=== PATIENT | female | born 1990 | race Caucasian/White ===

== ENCOUNTER 2017-01-08 05:03 | Day surgery (SDC) | payer OTHER ==
[2017-01-04 13:59] VITALS: BMI 18.0
--- NOTE | 2017-01-04 14:28 | PAT Medication Instructions ---
Service Date Jan 04, 2017. Current Home Medication List Albuterol Hfa (Ventolin Hfa), 2 PUFFS INH Q4H PRN for Cough Diclofenac (Voltaren), 50 MG PO PRN Ethinyl Estrad/Norgestimate (Sprintec 28), 1 TAB PO DAILY Ibuprofen (Advil), 200-600 MG PO Q4H PRN for Headache Methocarbamol (Robaxin), 500 MG PO PRN Prochlorperazine Maleate (Compazine), 10 MG PO Q6H PRN for PRN Medication Instructions For Your Scheduled Surgery - Hold the following medications the morning of surgery: Diclofenac (Voltaren), 50 MG PO PRN Ibuprofen (Advil), 200-600 MG PO Q4H PRN for Headache (otherwise okay to continue per surgeon) Methocarbamol (Robaxin), 500 MG PO PRN - Take the following medications the morning of surgery with a sip of water OTHERWISE NOTHING TO EAT OR DRINK AFTER MIDNIGHT: Ethinyl Estrad/Norgestimate (Sprintec 28), 1 TAB PO DAILY Prochlorperazine Maleate (Compazine), 10 MG PO Q6H PRN for PRN Albuterol Hfa (Ventolin Hfa), 2 PUFFS INH Q4H PRN for Cough (USE IF NEEDED; BRING TO HOSPITAL) - Take the following medications as scheduled the night before surgery: Methocarbamol (Robaxin), 500 MG PO PRN Prochlorperazine Maleate (Compazine), 10 MG PO Q6H PRN for PRN Albuterol Hfa (Ventolin Hfa), 2 PUFFS INH Q4H PRN for Cough If you have any questions please call us at [phone] or [phone] or [phone]
[2017-01-04 14:48] LABS: HEMATOCRIT 36.3 % (37-47); MEAN CELL VOLUME 88.8 fL (80-100); MEAN CORPUSCULAR HEMOGLOBIN 30.1 pg (25-34); MEAN CORPUSCULAR HGB CONC 33.9 g/dl (32-36); MEAN PLATELET VOLUME 9.1 fL (7.4-10.4); PLATELET COUNT 347 K/uL (130-400); RED BLOOD COUNT 4.09 M/uL (4.2-5.4)
[2017-01-04 15:08] LABS: BASO % 0.6 %; BASO ABS # 0.05 K/uL (0-0.2); COMPLETE YES; EOS % 2.5 %; IG% 0.1 %; LYMPH % 54.9 %; LYMPH ABS # 4.89 K/uL (1.2-3.4); MONO % 8.9 %
[2017-01-04 15:12] LABS: BUN/CREATININE RATIO 12.1 (10-20); CALCIUM 8.9 mg/dl (8.5-10.1); CREATININE 0.66 mg/dl (0.60-1.20); POTASSIUM 3.9 mmol/L (3.5-5.1)
[2017-01-04 15:15] LABS: PREG INTERNAL NEGATIVE QC NEG CLEAR BACKGROUND; PREG INTERNAL POSITIVE QC POS CONTROL LINE
[~2017-01-08] VITALS: Ht 157.5 cm; Wt 44.6 kg
[~2017-01-08 05:03] MED LIST: CEFAZOLIN 2000 MG/60 ML D5W IV SCH; DICL50TA3 PO; IBUP-1050 PO; LACTATED RINGER'S 1000ML 1,000 ML IV SCH; METH500T37 PO; PROC1TAB5 PO; SPR28 PO; VNTHFA/IN INH
[2017-01-08 05:34] VITALS: BP 105/64; PULSE 72; TEMP 36.5; O2SAT 98; Ht 157.5 cm; Wt 44.6 kg
[2017-01-08] MEDS ORDERED: CEFAZOLIN IV 2,000 MG/60 ML D5W IV ONE (05:53)
[2017-01-08] MEDS ORDERED: CEFAZOLIN 2000 MG/60 ML D5W IV SCH (06:00)
[2017-01-08] MEDS ORDERED: LACTATED RINGER'S 1000ML 1,000 ML IV SCH ×2 (06:00)
[2017-01-08] MEDS ORDERED: ACETAMINOPHEN 1000 MG/100 ML IV IV ONE (06:22)
[2017-01-08] MEDS ORDERED: ONDANSETRON INJ 2 MG/ML 2 ML VIAL ONE (06:23)
[2017-01-08] MEDS ORDERED: GLYCOPYRROLATE INJ 0.2 MG/ML VIAL ONE (06:23)
[2017-01-08] MEDS ORDERED: SUCCINYLCHOLINE CHLORIDE 20 MG/ML 10 ML VIAL IV ONE (06:23)
[2017-01-08] MEDS ORDERED: FENTANYL CITRATE INJ 50 MCG/1 ML 2 ML VIAL ONE (06:23)
[2017-01-08] MEDS ORDERED: LIDOCAINE HCL 2% 2 ML VIAL (20MG/ML) ONE (06:23)
[2017-01-08] MEDS ORDERED: DEXAMETHASONE SOD INJ 4 MG/ML VIAL ONE (06:23)
[2017-01-08] MEDS ORDERED: EpHEDrine SULFATE INJ 50 MG/ML AMP ONE (06:23)
[2017-01-08] MEDS ORDERED: ROCURONIUM BROMIDE 10 MG/ML 5 ML VIAL ONE (06:23)
[2017-01-08] MEDS ORDERED: PROPOFOL IV EMULSION 10 MG/ML 20 ML VIAL IV ONE ×2 (06:23→07:48)
[2017-01-08] MEDS ORDERED: NEOSTIGMINE METHYLSULFATE 5 MG/5 ML SYR ONE (06:23)
[2017-01-08] MEDS ORDERED: PHENYLEPHRINE HCL INJ 10 MG/ML VIAL ONE (06:23)
[2017-01-08] MEDS ORDERED: MIDAZOLAM HCL 1 MG/ML 2ML VIAL ONE (06:23)
[2017-01-08 06:28] LABS: BASO % 0.5 %; BASO ABS # 0.04 K/uL (0-0.2); EOS % 3.3 %; HEMATOCRIT 31.7 % (37-47); IG% 0.1 %; LYMPH % 49.7 %; LYMPH ABS # 4.11 K/uL (1.2-3.4); MEAN CELL VOLUME 88.8 fL (80-100); MEAN PLATELET VOLUME 8.8 fL (7.4-10.4); MONO % 9.6 %; NEUT % 36.8 %; PLATELET COUNT 287 K/uL (130-400); RED BLOOD COUNT 3.57 M/uL (4.2-5.4); WHITE BLOOD COUNT 8.27 K/uL (4.8-10.8)
[2017-01-08 06:35] LABS: COMPLETE YES; MEAN CORPUSCULAR HGB CONC 33.8 g/dl (32-36)
--- NOTE | 2017-01-08 06:40 | History & Physical Bridge Note ---
H&P Re-Evaluation Bridge Note: I have examined the patient, reviewed the History & Physical and in the interval since the performance of the History & Physical I have noted the following changes of clinical significance: No changes noted
[2017-01-08] MEDS ORDERED: SCOPOLAMINE 1.5 MG TDSY TD ONE (06:46)
[2017-01-08] MEDS ORDERED: BUPIVACAINE 0.5 % 5 MG/1 ML MPF 30ML VIAL ONE (06:57)
[2017-01-08] MEDS ORDERED: NURSING VERBAL MED ORDER ONE (07:00)
[2017-01-08] MEDS ORDERED: HYDROmorphone INJ 1 MG/ML SYR IV PRN (07:45)
[2017-01-08] MEDS ORDERED: ATROPINE SULFATE 0.1 MG/ML 5ML SYR IV PRN (07:45)
[2017-01-08] MEDS ORDERED: EpHEDrine SULFATE INJ 50 MG/ML AMP IV PRN (07:45)
[2017-01-08] MEDS ORDERED: ONDANSETRON INJ 2 MG/ML 2 ML VIAL IV PRN ×2 (07:45→08:30)
[2017-01-08] MEDS ORDERED: SCOPOLAMINE 1.5 MG TDSY TD SCH (07:45)
[2017-01-08] MEDS ORDERED: CHECK SCOPOLAMINE PATCH PLACEMENT SCH (08:00)
[2017-01-08] MEDS ORDERED: SODIUM CHLORIDE 0.9% 1000ML 1,000 ML IV SCH (08:19)
--- NOTE | 2017-01-08 08:24 | [facility] Post Operative Brief Note ---
Immediate Operative Summary Operative Date Jan 08, 2017. Pre-Operative Diagnosis Dermoid of Right Ovary, Chronic Pelvic Pain, Endometriosis Post-Operative Diagnosis Dermoid of Right Ovary, Chronic Pelvic Pain, Endometriosis Procedure(s) Performed Exploratory Laparoscopy, Right Salpingo-Oophorectomy Surgeon Dr. Srinivasan Superintendent [employer] Distribution Surgeon(s) Dr. Lorenz Estimated Blood Loss 5 Findings Upon laparoscopic exam uterus was at midline and freely mobile. Right ovary was enlarged. Left ovary and tube were normal. No endometriosis noted. The right ovary and tube were successfully removed laparoscopically. In order to accommodate removal of the specimen from the abdomen the suprapubic trocar incision had to be extended bilaterally. Once the specimen was removed the fascia of the incision was closed with 0-vicryl in a continuous running fashion. The abdomen and pelvis was irrigated with normal saline. Excellent hemostasis noted. The patient tolerated the surgery well and was sent to recovery with stable vital signs. Fluids (cc crystalloids) 1200 Specimens Right ovary and fallopian tube Drains None Anesthesia General Complication(s) None Disposition Recovery Room / PACU
[2017-01-08] MEDS ORDERED: OXYC-57 PO (08:25)
[2017-01-08] MEDS ORDERED: MTR600X PO (08:25)
--- NOTE | 2017-01-08 08:28 | Discharge Instructions ---
Discharge Instructions Date of Service Jan 08, 2017. Visit Reason for Visit: Right Dermoid Ovarian Cyst, Chronic Pelvic Pain, E Discharge Discharge Diagnosis / Problem: Laparoscopy, right salpingo-oophorectomy Discharge Goals Goal(s): Decrease discomfort Activity Recommendations Activity Limitations: per Instructions/Follow-up section Anesthesia . Post Anesthesia Instructions: If you have had General Anesthesia or IV Sedation: * Do not drive today. * Resume driving when surgeon permits. * Do not make important decisions or sign legal documents today. * Call surgeon for: 1. Temperature elevations greater than 101 degrees F. 2. Uncontrollable pain. 3. Excessive bleeding. 4. Persistent nausea and vomiting. 5. Medication intolerance (nausea, vomiting or rash). * For nausea and vomiting use only clear liquids such as: tea, soda, bouillon until nausea subsides, then gradually increase diet as tolerated. * If you have any concerns or questions, call your surgeon's office. If physician is unavailable and it is an emergency, call 911 or go to the nearest emergency room. . Instructions / Follow-Up Instructions / Follow-Up ACTIVITY RECOMMENDATIONS: Activity: * During the first week at home, your activity should be similar to that done at the hospital prior to discharge. Your primary activity is in-house walking interspersed with rest periods. Preparing lunch for yourself is acceptable. You may go up and down stairs. Try to stay up progressively longer periods of time to help regain your strength more quickly. * During the second week at home, activities should include some meal preparation, walking to strengthen abdominal muscles and riding in a car. You may drive a car and make brief shopping trips at the end of the second week at home. * Lifting should not exceed 15-20 pounds during the first month after surgery. * Sexual intercourse can usually be resumed about 2-4 weeks after surgery depending on findings at your post-operative examinations. SPECIAL CARE INSTRUCTIONS: The major discomforts related to surgery have now passed and progressive improvement will occur. The tight uncomfortable feeling in the abdominal, pelvic and back area will gradually fade away. Fatigue may take the longest to disappear; your energy level may take several weeks to return to normal. At times you may become frustrated or impatient over not feeling as well or doing as much as you'd like , but this is a normal reaction to surgery and will pass with time. Bowel Care: * Constipation after surgery is very common. Foods that promote bowel activity (bran, fruit, prune juice) should be included in your diet. * A capsule, DIALOSE-PLUS, can be purchased without a prescription and can be taken daily (one or two capsules) to assist in promoting bowel activity. Temperature: * Any fever above 100.4 degrees F should be reported to our office at . FOLLOW-UP: Post-Operative Appointments: * Individual instructions will have been given about the timing of your first examination, but this is usually at the end of the second week home. * You will need to call the office at soon after discharge to make the appointment for your post-op check-up if it has not already been scheduled. * Additional information regarding activity, sexual intercourse and when to return to work will be given at this appointment. WE WISH YOU A SPEEDY RECOVERY! Diet Recommendations Recommended Home Diet: no limitations, resume previous diet Procedures Procedures Performed: Exploratory Laparoscopy, Right Salpingo-Oophorectomy Pending Studies Studies pending at discharge: no Medical Emergencies . Who to Call and When: Medical Emergencies: If at any time you feel your situation is an emergency, please call 911 immediately. . Non-Emergent Contact Non-Emergency issues call your: [employer] . . "Provider Documentation" section prepared by Cali Srinivasan. [facility] Monitoring Program Search Results: no issues identified
[2017-01-08] MEDS ORDERED: OXYCODONE/ACETAMINOPHEN 5-325 TAB PO PRN ×2 (08:30)
[2017-01-08] MEDS ORDERED: KETOROLAC TROMETHAMINE 15 MG/ML VIAL IV. PRN (08:30)
[2017-01-08] MEDS ORDERED: IBUPROFEN 600 MG TAB PO PRN (08:30)
[2017-01-08] MEDS: FENTANYL CITRATE INJ 50 MCG/1 ML 2 ML VIAL IV PRN ×4 (08:33→08:57)
[2017-01-08] MEDS ORDERED: KETOROLAC TROMETHAMINE 30 MG/ML VIAL ONE (08:36)
--- NOTE | 2017-01-08 09:20 | Anesthesiology Progress Note ---
Anesthesia Post Op Note Date & Time Jan 08, 2017 at 09:20 Vital Signs Pain Intensity: 5 Vital Signs Past 12 Hours Date Time Temp Pulse Resp B/P Pulse Ox O2 Delivery O2 Flow Rate FiO2 01/08/17 09:11 36.9 01/08/17 09:07 82 18 01/08/17 09:07 82 18 95 01/08/17 09:05 99/73 01/08/17 09:02 51 14 01/08/17 09:02 52 14 95 01/08/17 09:00 107/68 01/08/17 08:57 54 16 01/08/17 08:57 54 16 96 01/08/17 08:56 51 21 96 01/08/17 08:56 51 21 01/08/17 08:55 102/72 01/08/17 08:51 60 16 97 01/08/17 08:51 59 16 01/08/17 08:50 54 12 01/08/17 08:50 55 12 96 01/08/17 08:45 66 17 116/78 100 01/08/17 08:45 64 17 01/08/17 08:40 66 19 01/08/17 08:40 67 19 126/79 100 01/08/17 08:35 73 20 01/08/17 08:35 73 20 120/88 100 01/08/17 08:30 36.0 84 12 137/81 98 Mask 10 01/08/17 08:30 86 12 137/81 98 01/08/17 08:30 87 12 01/08/17 05:34 36.5 72 18 105/64 98 Room Air Notes Mental Status: alert / awake / arousable, participated in evaluation Pt Amnestic to Procedure: Yes Nausea / Vomiting: adequately controlled Pain: adequately controlled, improving with treatment Airway Patency, RR, SpO2: stable & adequate BP & HR: stable & adequate Hydration State: stable & adequate Anesthetic Complications: no major complications apparent
[2017-01-08 09:30] VITALS: BP 104/62; PULSE 76; TEMP 36.6; O2SAT 100
[2017-01-08 10:00] VITALS: BP 97/60; PULSE 61; TEMP 36.6; O2SAT 100
--- NOTE | 2017-01-08 11:49 | OPERATIVE REPORT ---
DATE OF OPERATION: 01/08/2017 PREOPERATIVE DIAGNOSES: 1. Dermoid of right ovary. 2. Chronic pelvic pain. 3. History of endometriosis. POSTOPERATIVE DIAGNOSES: Same. OPERATIVE PROCEDURE: Exploratory laparoscopy with right salpingo-oophorectomy. SURGEON: Dr. Cali Srinivasan. HAT DESIGNER: Dr. Lorenz. ANESTHESIA: General. ESTIMATED BLOOD LOSS: 5 mL. IV FLUIDS: 1200 mL crystalloids. URINE OUTPUT: 150 mL clear yellow urine. SPECIMENS: Right ovary and fallopian tube to pathology. DRAINS: None. COMPLICATIONS: None. DISPOSITION: Recovery room. OPERATIVE FINDINGS: Upon laparoscopic exam, the uterus was at midline and freely mobile. The right ovary was enlarged, which contained a known dermoid cyst. The left ovary and tube were normal. No endometriosis seen. The right ovary and tube were successfully removed laparoscopically in order to accommodate removal of the specimen from the abdomen. The suprapubic trocar incision had to be extended bilaterally. Once the specimen was removed, the fascial incision was closed with 0 Vicryl in a continuous running fashion. The abdomen and pelvis was irrigated with normal saline solution. Excellent hemostasis was noted at the completion of the surgery. The patient tolerated the surgery well and was sent to recovery with stable vital signs. OPERATIVE PROCEDURE IN DETAIL: The patient was taken to the operating room, where general anesthesia was administered. Once anesthesia was found to be adequate, the patient was placed in dorsal lithotomy position and was prepped and draped in a manner appropriate for the procedure. The bladder was then drained of clear yellow urine. A weighted speculum was placed into the vagina and the anterior lip of the cervix was grasped with a single toothed tenaculum. A Tetra Discovery uterine manipulator was placed within the uterus in anteverted fashion. The patient was then readied for the laparoscopic portion of the procedure. Attention was directed towards the abdomen, where 0.5% Marcaine was injected below the umbilicus and an 11-mm skin incision was made subumbilically in a horizontal fashion. A Veress needle was then placed within the abdomen. Normal saline was injected with no fecal content aspirated. Pneumoperitoneum was then created. The Veress needle was then removed and an 11-mm trocar was placed within the abdomen under direct laparoscopic visualization. A second 11-mm skin incision was made 2 fingerbreadths above the pubic symphysis at midline in a horizontal fashion and a second 11-mm trocar was placed within the abdomen under direct laparoscopic visualization. A thorough examination of the abdomen and pelvis was then performed. The patient was placed in a Trendelenburg position. The bowel was displaced superiorly away from the pelvis. Attention was then directed towards the right adnexa, which contained a large ovary with a known dermoid cyst. The uteroovarian ligament was cauterized and transected and continued superiorly along the rest attachment point of the fallopian tube and ovary, successfully removing the tube and ovary. Once the specimen was amputated away from its attachments, it was placed within an EndoCatch bag and in order to accommodate removal without rupture of the cyst, the suprapubic incision had to be extended bilaterally. Once the specimen was removed, the fascia of the incision was grasped with Kayla clamps and was closed with 0 Vicryl suture in a continuous running fashion. Excellent hemostasis was noted. A thorough examination of the abdomen and pelvis was then performed once again. The removal site of the right ovary and tube was noted to be hemostatic. No other intra-abdominal or pelvic pathology noted. There was no evidence of endometriosis noted within the posterior cul-de-sac or the anterior cul-de-sac. At this point, the procedure was found to be complete. All instruments were removed from the abdomen and as much CO2 gas was allowed to percolate through open cannulas. The cannulas were then removed. The fascia of the umbilical incision was closed with 0 Vicryl suture in a [id number] interrupted fashion. The suprapubic incision subcutaneous tissue was reapproximated with 2-0 Vicryl suture in a continuous running fashion. Both incisions were then closed with 4-0 Monocryl in a subcuticular fashion. Excellent hemostasis was noted at both incisions. The Hulka uterine manipulator was then removed from the vagina. All sponge and instrument counts were found to be correct x2. The patient tolerated the surgery well and were sent to recovery with stable vital signs. I attest to the content of the Intraoperative Record and any orders documented therein. Any exceptio ns are noted below.
[2017-01-08] MEDS ORDERED: NURSING VERBAL MED ORDER STA (12:01)
== END 2017-01-08 10:45 | disposition home or self-care (01) ==
LOC: C.ACU 05:03
PROVIDERS: ATTEND Obstetrics & Gynecology
DX: D27.0 Benign neoplasm of right ovary (principal); N80.0 Endometriosis of uterus

== ENCOUNTER 2017-05-22 00:26 | Emergency (ER) | payer OTHER ==
[~2017-05-22] VITALS: Ht 157.5 cm; Wt 44.2 kg
[~2017-05-22 00:26] MED LIST changes: -CEFAZOLIN 2000 MG/60 ML D5W IV SCH; -IBUP-1050 PO; -LACTATED RINGER'S 1000ML 1,000 ML IV SCH; +MTR600X PO; +OXYC-57 PO
[2017-05-22 00:30] VITALS: TEMP 36.7; Ht 157.5 cm; Wt 44.2 kg
[2017-05-22] MEDS ORDERED: IBUPROFEN 600 MG TAB PO STA (00:43)
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
[2017-05-22 02:53] VITALS: BP 106/78; PULSE 62; O2SAT 99
[2017-05-22] MEDS ORDERED: PRLSR20 PO (03:48)
[2017-05-22] MEDS ORDERED: FLVHFA110 INH (03:49)
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
== END 2017-05-22 02:59 | disposition home or self-care (01) ==
LOC: C.EDB 00:27
DX: T74.11XA Adult physical abuse, confirmed, initial encounter (principal); S43.52XA Sprain of left acromioclavicular joint, initial encounter; S20.229A Contusion of unspecified back wall of thorax, initial encounter; S13.9XXA Sprain of joints and ligaments of unspecified parts of neck, initial encounter; S50.11XA Contusion of right forearm, initial encounter; S50.812A Abrasion of left forearm, initial encounter; Y04.8XXA Assault by other bodily force, initial encounter; Y07.03 Male partner, perpetrator of maltreatment and neglect; K21.9 Gastro-esophageal reflux disease without esophagitis; N80.9 Endometriosis, unspecified; Z91.5 Personal history of self-harm; Z72.0 Tobacco use; Z90.89 Acquired absence of other organs; Z98.890 Other specified postprocedural states; Z83.3 Family history of diabetes mellitus; Z82.49 Family history of ischemic heart disease and other diseases of the circulatory system; Z79.899 Other long term (current) drug therapy